=== PATIENT | male | born 1980 | race Caucasian/White ===

== ENCOUNTER 2016-03-16 21:19 | Emergency (ER) | payer MEDICAID ==
[2016-03-16] MEDS ORDERED: Sodium Chloride 0.9% 1,000 ML IV ONE (21:47)
[2016-03-16 21:59] LABS: % EOSINOPHILS 1.9 % (0.0-5.0); % LYMPHOCYTES 18.7 % (20.0-50.0); % MONOCYTES 5.3 % (2.0-10.0); % NEUTROPHILS 74.1 % (40.0-80.0); HEMATOCRIT 40.4 % (39.0-49.0); HEMOGLOBIN 14.3 gm/dL (13.2-17.3); MEAN CELL VOLUME 87.5 fl (80-99); MEAN CORPUSCULAR HEMOGLOBIN 30.9 pg (26.0-30.0); MEAN CORPUSCULAR HGB CONC 35.3 pg (28.0-36.0); MEAN PLATELET VOLUME 8.3 fl; NEUTROPHILE ABSOLUTE 8.3 Th/cmm (1.8-8.0); PLATELET COUNT 221 Th/cmm (150-400); RED BLOOD COUNT 4.61 Mil/cmm (4.30-5.70); RED CELL DISTRIBUTION WIDTH 12.6 % (11.5-20.0); WHITE BLOOD COUNT 11.2 Th/cmm (4.8-10.8)
[2016-03-16 22:11] LABS: ALB/GLOB RATIO 1.5 (1.0-1.8); ALKALINE PHOSPHATASE 68 U/L (34-104); ANION GAP 10.6 (7.0-16.0); BILIRUBIN,TOTAL 0.4 mg/dL (0.3-1.0); BUN - UREA NITROGEN 13 mg/dL (7-25); BUN/CREATININE RATIO 18.6; CALCIUM SERUM 8.9 mg/dL (8.6-10.3); CARBON DIOXIDE 21.6 mEq/L (21.0-31.0); CHLORIDE 101 mEq/L (98-107); CREATININE - SERUM 0.7 mg/dL (0.7-1.3); GLUCOSE 130 mg/dL (70-105); POTASSIUM SERUM 4.2 mEq/L (3.5-5.1); SGOT 34 U/L (13-39); SGPT/ALT 36 U/L (7-52); SODIUM SERUM 129 mEq/L (136-145)
[2016-03-16 22:25] LABS: URINE COLOR YELLOW; URINE GLUCOSE (UA) NEGATIVE (NEGATIVE)
[2016-03-16 22:26] LABS: URINE BACTERIA OCCASIONAL /hpf (NONE SEEN); URINE BILIRUBIN NEGATIVE (NEGATIVE); URINE BLOOD MODERATE (NEGATIVE); URINE EPITHELIAL CELLS OCCASIONAL /lpf (FEW); URINE KETONE NEGATIVE (NEGATIVE); URINE PROTEIN NEGATIVE (NEGATIVE); URINE UROBILINOGEN 0.2 E.U./dL (0.2 - 1.0); URINE WBC 0-2 /hpf (0-5)
[2016-03-16 22:27] LABS: AMPHETAMINE URINE NEGATIVE (NEGATIVE); BARBITURATES URINE NEGATIVE (NEGATIVE)
--- NOTE | 2016-03-16 22:27 | ED Physician Chart ---
Chief Complaint/HPI - Patient Information Date Seen:: 03/16/16 Time Seen:: 21:30 Chief Complaint:: left flank pain History of Present Illness:: location: left flank severity: moderate duration: less than 2 hours quality: sharp pain context: pt reports sudden onset of left flank pain which radiates to left groin. says pain lasted for about an hour and then subsided. decided to come to the ER for physician eval. has been drinking beer. pt reports he consumed about 3 beers before the pain began. thinks the pain is related to his drinking. currently in ER. pt is pain free, no epigastric pain, no nausea, no vomiting. mod factors: none assoc s/s: none hx from pt. Allergies:: Allergies Allergy/AdvReac Type Severity Reaction Status Date / Time Penicillins [PCN] Allergy Verified 03/16/16 21:26 Vitals:: Vital Signs - 8 hr 03/16/16 21:20 Temp 98.7 F HR 80 RR 20 BP 151/98 O2 Sat % 97 Historian:: Patient Review:: Nurse's Note Reviewed Review of Systems - Review of Systems General/Constitutional: No fever, No chills, No weight loss, No weakness, No diaphoresis, No edema, No loss of appetite Skin: No skin lesions, No rash, No bruising Head: No headache, No light-headedness Eyes: No loss of vision, No pain, No diplopia ENT: No earache, No nasal drainage, No sore throat, No tinnitus Neck: No neck pain, No swelling, No thyromegaly, No stiffness, No mass noted Cardio Vascular: No chest pain, No palpitations, No PND, No orthopnea, No edema Pulmonary: No SOB, No cough, No sputum, No wheezing GI: No nausea, No vomiting, No diarrhea, Pain, No melena, No hematochezia, No constipation, No hematemesis G/U: No dysuria, No frequency, No hematuria Musculoskeletal: No bone or joint pain, No back pain, No muscle pain Endocrine: No polyuria, No polydipsia Psychiatric: No prior psych history, No depression, No anxiety, No suicidal ideation Hematopoietic: No bruising, No lymphadenopathy Allergic/Immuno: No urticaria, No angioedema Neurological: No syncope, No focal symptoms, No weakness, No paresthesia, No headache, No seizure, No dizziness, No confusion, No vertigo Past Medical History - Past Medical History Past Medical History: No significant medical hx Family History: None Social History: Smoker, Alcohol, No Drug Use, Surgical History: None Psychiatricy History: None Medication: None Family Medical History - Family Member Mother History Unknown: Yes Physical Exam - Physical Examination General/Constitutional: Awake, Well-developed, well-nourished, Alert, No distress, GCS 15, Non-toxic appearing, Ambulatory Head: Atraumatic Eyes: Lids, conjuctiva normal, PERRL, EOMI Skin: Nl inspection, No rash, No skin lesions, No ecchymosis, Well hydrated, No lymphadenopathy ENMT: External ears, nose nl, Nasal exam nl, Lips, teeth, gums nl (breath smells of etoh, pt has clear speech, answers questions appropriately) Neck: Nontender Respiratory: Nl effort/Exclusion, Clear to Auscultation, No Wheeze/Rhonchi/Rales Cardio Vascular: RRR, No murmur, gallop, rubs, NL S1 S2 GI: No tenderness/rebounding/guarding, Normal BS's (at time of physician exam pt reports he is now without pain. no left flank tenderness, no abdominal pain. ), Nondistended : No CVA tenderness Extremities: No tenderness or effusion, Full ROM, normal strength in all extremities, No edema, Normal digits & nails Neuro/Psych: Alert/oriented, Normal sensory exam, Normal motor strength, Judgement/insight normal, Mood normal, Normal gait, No focal deficits Misc: normal gait, Normal back, No paraspinal tenderness Labs/Radiology/EKG Results - Lab Results Results: Laboratory Tests 03/16/16 03/16/16 21:52 21:52 WBC 11.2 H RBC 4.61 Hgb 14.3 Hct 40.4 MCV 87.5 MCH 30.9 H MCHC Differential 35.3 RDW 12.6 Plt Count 221 MPV 8.3 Neutrophils % 74.1 Lymphocytes % 18.7 L Monocytes % 5.3 Eosinophils % 1.9 Basophils % 0.0 Sodium 129 L Potassium 4.2 Chloride 101 Carbon Dioxide 21.6 Anion Gap 10.6 BUN 13 Creatinine 0.7 Est GFR ( Amer) > 60.0 Est GFR (Non-Af Amer) > 60.0 BUN/Creatinine Ratio 18.6 Glucose 130 H Calcium 8.9 Total Bilirubin 0.4 AST 34 ALT 36 Alkaline Phosphatase 68 Total Protein 7.1 Albumin 4.3 Globulin 2.8 Albumin/Globulin Ratio 1.5 Ethyl Alcohol 45 H - Radiology Results Results: CT abdomen and pelvis 5mm stone left distal ureter mild to moderate left hydroureter and mild left hydronephrosis. RAD READ Assessment - Assessment General Assessment: pt stable while in ER ED Septic Shock - . Is Septic Shock (SBP<90, OR Lactate>4 mmol\L) present?: No - <6hrs of presentation: Vital Signs: Vital Signs - 8 hr 03/16/16 21:20 Temp 98.7 F HR 80 RR 20 BP 151/98 O2 Sat % 97 Reassessment (Disposition) - Reassessment Reassessment:: ER course: pt spontaneously improving while in ER, continues to improve with IVF hydration. pt initially mildly inebriated. MDM: pts clinical scenario appears to fit with history of left sided renal stone and passing of stone. will treat as such. CT scan is currently down. [employer] attempting to repair. pt is stable, improving if CT is not repaired soon, will treat as nephrolithiasis/ureterolithiasis with passage of stone into bladder based on history and exam. CT scan is successfully performed. CT confirms left side 5mm stone. with mild hydronephrosis. pt is hydrated with 2L NS IV bolus, toradol for pain. with significant improvement. pt appears comfortable and improved, reports reduced left flank pain. will discharge to home with close follow up. Reassessment Condition:: Improved - Diagnosis Diagnosis:: left sided ureterolithiasis, improved - Aftercare/Follow up Instructions Aftercare/Follow-Up Instructions:: Refer to Discharge Instructions - Patient Disposition Discharge/Transfer:: Home Condition at Disposition:: Stable, Improved
--- NOTE | 2016-03-17 12:51 | Diagnostic Imaging Report ---
CT abdomen and pelvis without intravenous contrast Indication: Left flank pain that radiates to the groin Comparison: None, Technique: Axial images were obtained from the lung bases to the bilateral proximal femurs without IV contrast. Coronal reconstructions were made. total DLP: [id number], CTDI9.2 FINDINGS: Hypoventilatory changes of the lung bases are noted. Assessment of the solid organs is limited due to lack of IV contrast. There is a 1.3 cm low-density lesion within the right lobe of the liver difficult to characterize. No focal splenic or pancreatic lesions. No focal adrenal lesions. There is a 5 mm stone within the left distal ureter causing mild to moderate left hydroureter mild left hydronephrosis. Minimal left perinephric inflammatory changes are noted. Distended urinary bladder is noted. Small bilateral fat-containing hernias are noted. Moderate stool is noted greatest within the right colon. Appendix is unremarkable. No free air or free fluid. The osseous structures demonstrate no acute abnormalities. IMPRESSION: 5 mm stone within the left distal ureter causing mild to moderate left hydroureter mild left hydronephrosis with mild left perinephric inflammatory changes. Distended urinary bladder. 1.3 cm low-density lesion of the right lobe of liver, difficult to characterize. Please correlate with clinical findings and liver function tests and old exams, if available. Further assessment ultrasound and/or probably CT liver mass protocol is recommended.
== END 2016-03-17 00:35 | disposition home or self-care (01) ==
LOC: ER 21:19
DX: N20.1 Calculus of ureter (principal); F17.200 Nicotine dependence, unspecified, uncomplicated; Z88.0 Allergy status to penicillin
CPT/HCPCS: 99285; 96372; 74176; 36415; 80300; 85025; 81001; 80320; 80053; J1885; J7030

== ENCOUNTER 2016-03-18 05:39 | Emergency (ER) | payer MEDICAID ==
[2016-03-18] MEDS ORDERED: Sodium Chloride 0.9% 1,000 ML IV ONE ×2 (06:30→08:06)
--- NOTE | 2016-03-18 06:41 | ED Physician Chart ---
Chief Complaint/HPI - Patient Information Date Seen:: 03/18/16 Time Seen:: 05:40 Chief Complaint:: flank pain History of Present Illness:: 35-year-old male seen here in this ER one day ago with left flank pain and diagnosed with 5 mm left ureteral stone, complains of acute, constant, severe, 10 out of 10, radiating from the flank to the groin, left flank pain that started 1 hour prior to arrival. Allergies:: Allergies Allergy/AdvReac Type Severity Reaction Status Date / Time Penicillins [PCN] Allergy Verified 03/16/16 21:26 Vitals:: Vital Signs - 8 hr 03/18/16 06:10 Temp 97.7 F HR 59 RR 18 BP 169/102 O2 Sat % 99 Historian:: Patient Review:: Nurse's Note Reviewed Review of Systems - Review of Systems Other: Complete system review otherwise unremarkable except as noted in HPI. Past Medical History - Past Medical History Past Medical History: No significant medical hx Family History: None Social History: Non Smoker, Alcohol, No Drug Use Surgical History: None Psychiatricy History: None Medication: None Family Medical History - Family Member Mother History Unknown: Yes Physical Exam - Physical Examination Other:: INITIAL VITAL SIGNS: Reviewed by me GENERAL: Alert and interactive. Writhing in pain HEAD: Head is normocephalic and atraumatic EYES: EOMI. . No scleral icterus. No conjunctival injection ENT: Moist mucous membranes. NECK: Supple. No masses. Full range of motion RESPIRATORY: No tachypnea. Clear breath sounds bilaterally. No wheezing, rales, or rhonchi CV: Regular rate and rhythm. No murmurs, rubs, or gallops ABDOMEN: Soft, non-distended, tender to palpation along the left lower quadrant. No rebound. No masses. EXTREMITIES: No deformity. No cyanosis. No edema. SKIN: Warm and dry. No obvious rashes. NEUROLOGIC: Alert and oriented. Face is symmetric. Speech is normal. Moves all extremities equally. Motor and sensory distally intact. ED Septic Shock - . Is Septic Shock (SBP<90, OR Lactate>4 mmol\L) present?: No - <6hrs of presentation: Vital Signs: Vital Signs - 8 hr 03/18/16 06:10 Temp 97.7 F HR 59 RR 18 BP 169/102 O2 Sat % 99 Reassessment (Disposition) - Reassessment Reassessment:: The patient's blood pressure was elevated (>120/80) but appears stable without evidence of hypertensive emergency or urgency. The patient was counseled about the risks hypertension urged to pursue outpatient monitoring and therapy within a week with her primary care physician. Patient will be handed over to Dr. Schmidt at change of shift. He will make final disposition. Reassessment Condition:: Improved - Diagnosis Diagnosis:: Left ureteral stone Elevated blood pressure without the diagnosis of hypertension - Patient Disposition Discharge/Transfer:: Acute Care w/in this hosp
[2016-03-18] MEDS ORDERED: Morphine Sulfate 4 mg/mL 1mL Syr IVP STA (06:59)
[2016-03-18] MEDS ORDERED: Prochlorperazine 5 mg/mL 2mL Vial IVP STA (06:59)
[2016-03-18 07:22] LABS: % BASOPHILS 1.1 % (0.0-2.0); % EOSINOPHILS 0.7 % (0.0-5.0); % LYMPHOCYTES 19.5 % (20.0-50.0); % MONOCYTES 3.9 % (2.0-10.0); % NEUTROPHILS 74.8 % (40.0-80.0); HEMOGLOBIN 14.8 gm/dL (13.2-17.3); MEAN CELL VOLUME 84.1 fl (80-99); MEAN CORPUSCULAR HEMOGLOBIN 27.9 pg (26.0-30.0); MEAN CORPUSCULAR HGB CONC 33.2 pg (28.0-36.0); MEAN PLATELET VOLUME 8.4 fl; NEUTROPHILE ABSOLUTE 6.9 Th/cmm (1.8-8.0); PLATELET COUNT 231 Th/cmm (150-400); RED BLOOD COUNT 5.31 Mil/cmm (4.30-5.70); RED CELL DISTRIBUTION WIDTH 13.1 % (11.5-20.0); WHITE BLOOD COUNT 9.3 Th/cmm (4.8-10.8)
[2016-03-18] MEDS ORDERED: Prochlorperazine 5 mg/mL 2mL Vial ONE (07:23)
[2016-03-18] MEDS ORDERED: Morphine Sulfate 4 mg/mL 1mL Syr ONE (07:24)
[2016-03-18] MEDS ORDERED: Morphine Sulfate 2 mg/mL 1mL Syr ONE (07:24)
[2016-03-18 07:27] LABS: HEMATOCRIT 44.6 % (39.0-49.0)
[2016-03-18 07:36] LABS: ALB/GLOB RATIO 1.1 (1.0-1.8); ALKALINE PHOSPHATASE 149 U/L (34-104); AMYLASE SERUM 173 U/L (29-103); ANION GAP 11.7 (7.0-16.0); BILIRUBIN,TOTAL 0.4 mg/dL (0.3-1.0); BUN - UREA NITROGEN 11 mg/dL (7-25); BUN/CREATININE RATIO 12.2; CALCIUM SERUM 9.8 mg/dL (8.6-10.3); CARBON DIOXIDE 23.4 mEq/L (21.0-31.0); CHLORIDE 101 mEq/L (98-107); CREATININE - SERUM 0.9 mg/dL (0.7-1.3); GLUCOSE 169 mg/dL (70-105); LIPASE 50 U/L (11-82); POTASSIUM SERUM 3.1 mEq/L (3.5-5.1); SGOT 35 U/L (13-39); SGPT/ALT 20 U/L (7-52); SODIUM SERUM 133 mEq/L (136-145)
[2016-03-18 07:59] LABS: URINE BILIRUBIN NEGATIVE (NEGATIVE); URINE COLOR YELLOW; URINE GLUCOSE (UA) NEGATIVE (NEGATIVE); URINE KETONE NEGATIVE (NEGATIVE)
[2016-03-18 08:00] LABS: URINE BLOOD NEGATIVE (NEGATIVE); URINE PROTEIN NEGATIVE (NEGATIVE); URINE UROBILINOGEN 0.2 E.U./dL (0.2 - 1.0)
[2016-03-18] MEDS ORDERED: KCL 20mEq/100mL Premix 20 MEQ/100 ML PIGGYBACK IV ONE ×2 (08:06→08:18)
[2016-03-18 08:13] LABS: URINE BACTERIA NONE SEEN /hpf (NONE SEEN); URINE EPITHELIAL CELLS RARE /lpf (FEW); URINE RBC NONE SEEN /hpf (0-5); URINE WBC NONE SEEN /hpf (0-5)
== END 2016-03-18 10:50 | disposition home or self-care (01) ==
LOC: ER 05:39
DX: N20.1 Calculus of ureter (principal); R03.0 Elevated blood-pressure reading, without diagnosis of hypertension; Z88.0 Allergy status to penicillin
CPT/HCPCS: 99284; 96361; 96374; 96375; 36415; 83605; 85025; 81001; 82150; 83690; 80053; 87040 ×2; J2270; J3480; J1885; J0780; J7030; Z7502; Z7610